=== PATIENT | male | born 1980 | race Caucasian/White ===

== ENCOUNTER 2019-10-23 18:33 | Emergency (ER) | payer BC, SELFPAY ==
[2019-10-23 18:58] VITALS: BP 128/90; PULSE 117; RESP 14; TEMP 36.9; O2SAT 96; BMI 25.1
--- NOTE | 2019-10-23 19:16 | ED_ITS ---
HPI - Male Genitourinary General: Chief complaint: Urogenital-Male Stated complaint: poss uti Time Seen by Provider: 10/23/19 19:09 Source: patient Mode of arrival: ambulatory Limitations: no limitations History of Present Illness: HPI Narrative: 39-year-old male patient comes in today with urinary discomfort and hematuria. Patient states that he has had previous episodes of urinary tract infection but has never noticed blood in his urine. Patient denies any flank pain or other discomfort. Patient reports just some pressure in his pelvis. Patient appears well. Patient appears in no acute distress. Associated symptoms: Reports hematuria Review of Systems General: Reports: 10 or more systems reviewed and unremarkable except in HPI and below : Reports: hematuria Physical Exam Const: COMMON NORMALS: no acute distress and patient oriented x3 GENERAL APPEARANCE: cooperative HENMT: COMMON NORMALS: normocephalic and Normal external nose present HEAD & SCALP: normal to inspection and normocephalic NOSE: Normal external nose present MOUTH: Normal oral and palatal mucosa present THROAT: posterior oropharynx normal Eye: GENERAL EYE: appearance normal, both eyes and all related structures Neck/C-Spine: COMMON NORMALS: full ROM Chest: COMMONS NORMALS: normal inspection of the chest Resp: COMMON NORMALS: normal respiratory effort EFFORT & INSPECTION: Yes able to speak in complete sentences Cardio: COMMON NORMALS: regular rate and regular rhythm RATE: regular rate RHYTHM: regular rhythm GI: COMMON NORMALS: non-tender : COMMON NORMALS: Yes no CVA tenderness BLADDER/KIDNEY EXAM: Yes no CVA tenderness Back/Pelvis: COMMON NORMALS: no CVA tenderness and thoracic and lumbar spine normal to inspection Extremity: COMMON NORMALS: normal to inspection Neuro: COMMON NORMALS: patient oriented x3 and moves all extremities Psych: COMMON NORMALS: mental status grossly normal and cooperative Skin: COMMON NORMALS: no rashes or lesions noted GENERAL SKIN EXAM: no rashes or lesions noted Course Vital Signs: Vital signs: Vital Signs Temperature 98.4 F 10/23/19 18:58 Pulse Rate 117 H 10/23/19 18:58 Respiratory Rate 14 10/23/19 18:58 Blood Pressure 128/90 10/23/19 18:58 Pulse Oximetry 96 10/23/19 18:58 MDM - Male 2 MDM Narrative: Medical decision making narrative: Patient comes in with urinary discomfort and gross hematuria starting since Thursday. Exam notes some suprapubic tenderness, no flank pain, vital signs are normal except for some mild elevation in pulse. Differential diagnosis includes UTI, renal calculi, tumor of the bladder. Laboratory values and was elevated white count of 18,000, urine had large amounts of blood and white blood cells. Creatinine was 1.0. CT of the abdomen and pelvis noted some superficial renal stones but otherwise was negative. Reviewed exam with patient patient was given 1 g of Rocephin and started on Bactrim 1 twice a day for 14 days. Encourage plenty of water and plenty of fluids. Patient reported understanding of care plan and need for follow-up with urology. Case management request placed for urology follow-up. Lab Data: Labs: Lab Results 10/23/19 10/23/19 10/23/19 Range/Units 19:10 19:35 19:49 WBC 18.4 H (4.0-10.0) 10^3/ uL RBC 5.46 H (4.1-5.3) 10^6/u L Hgb 16.4 (11.7-16.6) g/dL Hct 51.0 (42.0-52.0) % MCV 93.4 (80-94) fL MCH 30.0 (28.0-34.0) pg MCHC 32.2 (30.0-36.0) g/dL RDW 13.3 (12.1-15.1) % Plt Count 246 (130-400) 10^3/c mm MPV 10.7 H (7.4-10.4) fL Neut % (Auto) 79.5 % Lymph % (Auto) 13.6 % Zavala % (Auto) 5.6 % Eos % (Auto) 0.4 % Baso % (Auto) 0.3 % Neut # (Auto) 14.62 H (1.8-7.7) 10^3/u L Lymph # (Auto) 2.5 (0.8-4.8) 10^3/u L Zavala # (Auto) 1.0 H (0.2-0.9) 10^3/u L Eos # (Auto) 0.1 (0.0-0.8) 10^3/u L Baso # (Auto) 0.1 (0.0-0.1) 10^3/u L Nucleated RBC % (a uto) 0 % Nucleated RBCs # 0.0 /100WBC Sodium 135 L (136-145) mmol/L Potassium 4.3 (3.5-5.1) mmol/L Chloride 100 (98-107) mmol/L Carbon Dioxide 23 (22-29) mmol/L Anion Gap 16.3 (5-19) BUN 14 (6-20) mg/dL Creatinine 1.0 (0.7-1.2) mg/dL GFR Calculation 82.3 L (90-130) mL/min Glucose 102 (65-115) mg/dL Calculated Osmolal ity 276 L (285-295) mOsm/k g Calcium 9.9 (8.5-10.5) mg/dL Urine Color Red (Yellow) Urine Appearance Bloody A (CLEAR) Urine pH 7 (5-7) Ur Specific Gravit y 1.010 (1.005-1.030) Urine Protein 3+ H (Negative) Urine Glucose (UA) Norm (Normal) Urine Ketones Negative (Negative) Urine Blood 3+ H (Negative) Urine Nitrate Not tested A (Negative) Urine Bilirubin 2+ H (NEGATIVE) Urine Urobilinogen 8 H (Negative) mg/dL Ur Leukocyte Lorena ase 1+ H (Negative) Urine RBC Too numerous to c nt H (0-2) /hpf Urine WBC >100 H (0-5) /hpf Ur Squamous Epith Cells 0-4 H (0-5) Ur Transition Epit h Cell 0-4 /hpf Amorphous Sediment Not Reportable Urine Bacteria 1+ H (NONE) Discharge Plan Discharge Patient Disposition: Home, Self-Care Clinical Impression: Urinary tract infection Qualifiers: Urinary tract infection type: site unspecified Hematuria presence: with hematuria Qualified Code(s): N39.0 - Urinary tract infection, site not specified Condition: Stable Prescriptions: New Bactrim DS 800-160 mg tablet 1 tab PO Q12H 14 Days Qty: 28 RF: 0 Discharge Orders: Discharge Order (Routine); Ordered 10/23/19 Ordered By: Cosme Agee Discharge Diet: Usual diet Discharge Activity: Increase activity as tolerated Patient Instructions: Urinary Tract Infection in Men (ED) Activity Restrictions/Additional Instructions: Drink plenty of water. Use medication as directed. Follow-up with primary care in 1 week. Case management will contact you regarding appointment with urology. Return to the ER for nausea vomiting high fever or new concerns. Coding Level of Care Code ED [employer] for Chg Fwd Exam Comprehensive
--- NOTE | 2019-10-23 19:22 | CTR_ITS ---
PROCEDURE INFORMATION: Exam: CT Abdomen And Pelvis Without Contrast Exam date and time: 10/23/2019 7:37 PM Age: 39 years old Clinical indication: Other: Blood in urnie; Prior surgery; Surgery type: Appy; Additional info: Gross hematuria TECHNIQUE: Imaging protocol: Computed tomography of the abdomen and pelvis without contrast. Radiation optimization: All CT scans at this facility use at least one of these dose optimization techniques: automated exposure control; mA and/or kV adjustment per patient size (includes targeted exams where dose is matched to clinical indication); or iterative reconstruction. COMPARISON: No relevant prior studies available. RADIATION DOSE METRICS: Total DLP (mGy-cm): 708.57 FINDINGS: Liver: Unremarkable. No mass. Gallbladder and bile ducts: Normal. No calcified stones. No ductal dilation. Pancreas: Normal. No ductal dilation. Spleen: Normal. No splenomegaly. Adrenals: Tiny 8 mm adenoma left adrenal gland. No follow-up recommended. Right adrenal gland normal. Kidneys and ureters: Very tiny focus of nonobstructing calyceal nephrolithiasis inferior pole left kidney under 2 mm. No visible nephrolithiasis right kidney. No visible ureterolithiasis. No hydronephrosis or perinephric fluid evident bilaterally. Stomach and bowel: Mild diverticulosis coli without evidence for diverticulitis. Nonobstructive bowel pattern. No visible adynamic or reactive ileus. Appendix: Status post appendectomy. Intraperitoneal space: Unremarkable. No free air. No significant fluid collection. Vasculature: Unremarkable. No abdominal aortic aneurysm. Lymph nodes: Unremarkable. No enlarged lymph nodes. Bladder: Assessment of the urinary bladder reveals faint foci of mildly dense hyperattenuating material that may reflect hemorrhage or clot. No grossly visible bladder mass. No visible asymmetrical bladder wall thickening. No visible bladder stone. Reproductive: Prostate hypertrophy. Bones/joints: Mild degenerative disease and degenerative disc disease L5/S1. No visible acute osseous abnormality. Soft tissues: Unremarkable. CT/CT kidney stone [id number] IMPRESSION: 1. Assessment of the urinary bladder reveals faint foci of mildly dense hyperattenuating material that may reflect hemorrhage or clot. No grossly visible bladder mass. No visible asymmetrical bladder wall thickening. No visible bladder stone. 2. Tiny focus of nonobstructing calyceal nephrolithiasis inferior pole left kidney under 2 mm. 3. Tiny subcentimeter adenoma left adrenal gland. No follow-up recommended. 4. Mild diverticulosis coli without evidence for diverticulitis. COMMENTS: Consistent with the [employer]'s Incidental Findings Committee white paper (J Am Sadie Radiol 2017): Any incidental adrenal lesion less than or equal to 1.0 cm is likely benign. No follow-up imaging is recommended for these lesions per consensus recommendations based on imaging criteria. Further lab evaluation could be pursued if warranted based on clinical findings. Radiation Dose CTDIVOL = (mGy): DLP = 708.57 (mGy-cm)
[2019-10-23 19:42] LABS: Basophils # 0.1 10^3/uL (0.0-0.1); Basophils % 0.3 %; Eosinophils # 0.1 10^3/uL (0.0-0.8); Eosinophils % 0.4 %; Hemoglobin 16.4 g/dL (11.7-16.6); Lymphocytes # 2.5 10^3/uL (0.8-4.8); Lymphocytes % 13.6 %; Mean Corpuscular HGB Conc 32.2 g/dL (30.0-36.0); Mean Corpuscular Volume 93.4 fL (80-94); Mean Platelet Volume 10.7 fL (7.4-10.4); Monocytes % 5.6 %; Neutrophils # 14.62 10^3/uL (1.8-7.7); Neutrophils % 79.5 %; Nucleated Red Blood Cells % 0 %; Platelet Count 246 10^3/cmm (130-400); Red Blood Count 5.46 10^6/uL (4.1-5.3); Red Cell Distribution Width 13.3 % (12.1-15.1); White Blood Count 18.4 10^3/uL (4.0-10.0)
[2019-10-23 19:51] LABS: Bilirubin Urine 2+ (NEGATIVE); Blood Urine 3+ (Negative); Glucose Urine UA Norm (Normal); Ketones Urine Negative (Negative); Nitrate Urine Not Tested (Negative); Protein Urine 3+ (Negative); Urine Appearance Bloody (CLEAR); Urine Color Red (Yellow); pH Urine 7 (5-7)
[2019-10-23 19:52] LABS: Add Urine Microscopic? YES; Bacteria Urine 1+; Leukocyte Esterase Urine 1+ (Negative); RBC Urine TOO NUMEROUS TO CNT /hpf (0-2); Squamous Epithelial Cell Urine 0-4 (0-5); Transitional Epi Cells Urine 0-4 /hpf; Urobilinogen Urine 8 mg/dL (Negative); WBC Urine >100 /hpf (0-5)
[2019-10-23 19:53] LABS: Add Urine Culture? Yes
[2019-10-23 20:24] LABS: Anion Gap 16.3 (5-19); Blood Urea Nitrogen 14 mg/dL (6-20); Calcium 9.9 mg/dL (8.5-10.5); Carbon Dioxide 23 mmol/L (22-29); Chloride 100 mmol/L (98-107); Glomerular Filtration Rate 82.3 mL/min (90-130); Glucose 102 mg/dL (65-115); Osmolality Calculated 276 mOsm/kg (285-295); Potassium 4.3 mmol/L (3.5-5.1); Sodium 135 mmol/L (136-145)
[2019-10-23] MEDS: cefTRIAXone 1,000 mg SDV 1000 MG IM (21:06)
[2019-10-23 21:26] VITALS: BP 124/78; PULSE 82; RESP 12; O2SAT 99
--- NOTE | 2019-10-25 09:23 | DCPLANNER ---
business analyst manager had message to schedule a follow up appointment for patient with Dr. Montalvo. business analyst manager called the office of Dr. Montalvo, spoke with Dalia, gave clinic patients information. business analyst manager was told that patients information would be printed and reviewed. Clinic will call patient with appointment information.
--- NOTE | 2019-10-26 14:01 | DCPLANNER ---
Patient has a follow up appointment scheduled for , November 11, 2019 at 8:[address] Montalvo.
--- NOTE | 2019-12-02 12:31 | DCPLANNER ---
Patient did attend appointment scheduled for 11.11.[address] Montalvo.
== END 2019-10-23 21:28 | disposition home or self-care (01) ==
PROVIDERS: Emergency Medicine; Emergency Provider Nurse Practitioner Family
DX: N39.0 Urinary tract infection, site not specified (principal)
CPT/HCPCS: 12345; 74176; 80048; 81001; 81003; 85025; 87086; 96372; 99281; 99283; J0696

== ENCOUNTER 2019-11-11 07:28 | Outpatient (CLI) | payer BC, SELFPAY ==
--- NOTE | 2019-11-11 07:30 | XRR_ITS ---
PROCEDURE INFORMATION: Exam: XR Abdomen, 1 View Exam date and time: 11/11/2019 7:41 AM Age: 39 years old Clinical indication: Condition or disease; Kidney or ureter condition; Other: Nephrolithiasis; Prior surgery; Surgery type: Appy TECHNIQUE: Imaging protocol: XR of the abdomen. Views: Frontal supine view of the abdomen. 1 View. COMPARISON: CT kidney stone [id number] 10/23/2019 7:56 PM FINDINGS: Gastrointestinal tract: bowel gas pattern is nonspecific. Air filled large bowel including distal rectal gas. Large amount of stool throughout the large bowel. Bones/joints: Unremarkable. XR/XR KUB [id number] IMPRESSION: 1. Bowel gas pattern is nonspecific. Air filled large bowel including distal rectal gas. 2. Large amount of stool throughout the large bowel.
== END 2019-11-11 07:29 | disposition home or self-care (01) ==
PROVIDERS: PCP Nurse Practitioner Family; Visit Provider Nurse Practitioner Family
DX: N20.0 Calculus of kidney (principal); N39.0 Urinary tract infection, site not specified
CPT/HCPCS: 74018; 81001; 88112

== ENCOUNTER → 2020-01-12 15:07 | Outpatient (BNVA) | payer BC, SELFPAY | PROVIDERS: PCP Family Medicine; Visit Provider Urology | DX: R31.0 Gross hematuria (principal); N41.8 Other inflammatory diseases of prostate | CPT/HCPCS: 81001 ==